=== PATIENT | female | born 1990 | race Caucasian/White ===

== ENCOUNTER 2019-08-08 09:54 | Outpatient (CLI) | payer OTHER ==
[~2019-08-08] VITALS: Ht 162.6 cm; Wt 78.0 kg
[2019-08-08 10:23] VITALS: BP 123/62
[2019-08-08] MEDS ORDERED: PREN1CHW6 PO ×2 (10:31)
[2019-08-08] MEDS ORDERED: IRON325T9 PO (10:31)
[2019-08-08] MEDS ORDERED: MAPA500T2 PO (10:31)
[2019-08-08 10:39] VITALS: BP 112/60
[2019-08-08 10:40] VITALS: BP 110/60
[2019-08-08 10:54] VITALS: BP 112/59
[2019-08-08] MEDS ORDERED: ACETAMINOPHEN 500 MG TAB PO ONE (11:00)
[2019-08-08 11:09] VITALS: BP 107/57
== END 2019-08-08 11:35 | disposition home or self-care (01) ==
LOC: M LDO 09:54
PROVIDERS: ATTEND Advanced Practice Midwife
DX: O16.3 Unspecified maternal hypertension, third trimester (principal); Z3A.40 40 weeks gestation of pregnancy; Z87.59 Personal history of other complications of pregnancy, childbirth and the puerperium
CPT/HCPCS: 59025; G0378; G0463

== ENCOUNTER 2019-08-09 04:02 | Outpatient (CLI) | payer OTHER ==
[~2019-08-09] VITALS: Ht 162.6 cm; Wt 77.6 kg
[~2019-08-09 04:02] MED LIST: IRON325T9 PO; MAPA500T2 PO; PREN1CHW6 PO
[2019-08-09 04:16] VITALS: BP 130/81
--- NOTE | 2019-08-09 05:03 | IPNPDOC ---
Text Note Date of Service The patient was seen on 08/09/19. NOTE patient is a 29 yo @ 40+2 presents to L&D with concern for having painful contractions. denies LOF/VB. +fm Vitals: normal NAD FHT: 125/mod cali/pos accel/no decel TOCO: irregular ctx ce: 2-3/50/-3, posterior, medium a/p patient @ 40+2wks, not in labor, return precautions given. f/u with clinic as scheduled, back to L&D as needed. DO ary VS,Maryam, I+O VS, Maryam, I+O Vital Signs Date Time Temp Pulse Resp B/P (MAP) Pulse Ox O2 Delivery O2 Flow Rate FiO2 08/09/19 04:16 97.4 76 18 130/81 (97) GLADYS YEE DO Aug 09, 2019 05:03
== END 2019-08-09 05:05 | disposition home or self-care (01) ==
LOC: M LDO 04:02
PROVIDERS: ATTEND Obstetrics & Gynecology
DX: O47.1 False labor at or after 37 completed weeks of gestation (principal); Z3A.40 40 weeks gestation of pregnancy
CPT/HCPCS: 59025; G0378; G0463

== ENCOUNTER 2019-08-10 05:22 | Inpatient (IN) | payer OTHER ==
[~2019-08-10] VITALS: Ht 162.6 cm; Wt 78.4 kg
[2019-08-10] VITALS (38 sets, daily range): BP systolic 105–173; BP diastolic 55–91
[2019-08-10] MEDS ORDERED: LACTATED RINGER'S 1000 ML IV STA (05:44)
[2019-08-10] MEDS ORDERED: PENICILLIN G POTASSIUM IV 5 MU in D5W MINI-BAG PLUS 100 ML IV STA (05:44)
[2019-08-10 06:24] LABS: HEMATOCRIT 34.4 % (36.0-47.0); HEMOGLOBIN 11.3 g/dl (12.0-15.5); MEAN CORPUSCULAR HEMOGLOBIN 29.7 pg (27.0-33.0); MEAN CORPUSCULAR HGB CONC 32.8 g/dl (32.0-36.5); MEAN CORPUSCULAR VOLUME 90.3 fl (80.0-96.0); PLATELET COUNT, AUTOMATED 212 10^3/uL (150-450); RED BLOOD COUNT 3.81 10^6/uL (4.00-5.40); WHITE BLOOD COUNT 12.3 10^3/uL (4.0-10.0)
--- NOTE | 2019-08-10 06:50 | HPEPDOC ---
Obstetrical History & Physical General Date of Admission Aug 10, 2019 at 05:45 Primary Care Physician: Donna Wood MD History of Present Illness 29y/o @ 40+3 wks by LMP c/w 9 wk US ([id number]) presents for contractions at term. She denies LOF, vaginal bleeding and endorses active movement. Contractions are getting increasingly painful and now associated with nausea. Chief Complaint: Contractions, term Information Provided By: Patient Age: 29 : 2 Term: 0 Pre-term: 1 Abortions: 0 Livin Care Care: Good Care Dating Final EDC: Aug 07, 2019 Final EDC for Daily Update: Aug 07, 2019 Final EDC by: LMP LMP: Oct 31, 2018 1st Trimester Date: Jan 03, 2019 Estimated Date of Confinement: Aug 07, 2019 Antepartum Course Diagnos(e)s -History of pre-term pre-eclampsia with severe features with delivery at 36 weeks, on ASA 81mg -Anemia -Migraines Height (inches): 64 Pre- weight (lbs.): 140 Admission Weight (lbs.): 172.5 Change in Weight (lbs.): 32 Past Medical History Past Obstetrical History : Past Obstetrical History: Multigravida Date of Delivery: Sep 23, 2017 Gestation: 36 Type of Delivery: Spontaneous Vaginal Del. 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 Denies asthma or HTN. Denies history of abnormal paps, procedures on the cervix or STIs to include HSV. Surgical History: Appendectomy, Tooth extraction, Other Family History Family History Reports history of colon and ovarian cancer Social History Marital Status: Family situation: Spouse/partner home Psychosocial History: No pertinent psych hx * Smoker: non-smoker Alcohol: Denies Drugs: denies Imunizations Tdap status: current Influenza Status: needs Allergies Coded Allergies: No Known Allergies (Unverified , 08/08/19) Medications Scheduled Ferrous Sulfate (Iron) 325 Mg Tablet, 1 TAB PO DAILY Vit37/Iron/Folic Acid (Prenata Chewable Tablet) 1 Each Tab.chew, 1 TAB PO DAILY Miscellaneous Medications Acetaminophen (Mapap) 500 Mg Tablet, 1,000 MG PO Physical Examination Physical Examination GENERAL: Alert and oriented times three. BREAST: . ABDOMEN: Gravid and non-tender to touch. FETUS: Is vertex (VTX) by sterile vaginal examination (SVE), fetus is vertex (VTX) by Ronaldo. HEART RATE: Regular rate and rhythm. LUNGS: Clear to auscultation (CTA). EXTREMITIES: No edema, erythema or calf tenderness. EFW 3700g Laboratory Data 24H LABS Laboratory Tests 2 08/10/19 05:52: Serology Scanned Report Hepatitis B Testing 08/10/19 06:11: Nucleated Red Blood Cells % (auto) 0.0 CBC/BMP Laboratory Tests 08/10/19 06:11 Red Blood Count 3.81 L, Mean Corpuscular Volume 90.3, Mean Corpuscular Hemoglobin 29.7, Mean Corpuscular Hemoglobin Concent 32.8, Red Cell Distribution Width 13.9 Pertinent Laboratoy Data Blood Type: A+ RBC Antibody Screen: Negative HIV: Negative Hepatitis B: Negative Hepatitis C: Unknown Rapid Plasma Reagin: Nonreactive Rubella: Immune Varicella: Immune Chlamydia/Gonorrhea: Negative Group B Streptococcus: Positive Quad Screen Test: Unknown Cystic Fibrosis: Negative Anatomy Ultrasound Ultrasound Date: March 21, 2019 Placenta Location: Posterior Normal Anatomy: Yes Placenta Previa: No Estimated Weight (grams): 386 Steroid Therapy Steroid Therapy: No Vaginal Examination Dilation: 5 cm Effacement: 70% Station: -1, 0 Cervical Consistency: Soft Cervical Position: Posterior Presentation: Cephalic presentation Position: Vertex (occiput) Assessment Variability: Moderate Accelerations: Positive Decelerations: None Tocometer Contractions: Yes Frequency: regular, every 3-7 min. Duration: greater than 60 seconds Strength: palpated as moderate Multi-drug resistant Organism: No history of MDRO Assessment/Plan Assessment Ms Restrepo is a 29-year-old (G)2 para (P)0101 at 40+3 weeks by LMP c/w 9-week ultrasound. 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 Diet: Clear liquid. Group B Streptococcus (GBS) positive. Will start PCN for prophylaxis. Labs and intravenous (IV) per unit protocol. Counseled on Pitocin and AROM for augmentation of labor (IOL). Lactated Ringers (LR): [id number] mL, then at 125 mL/hr. Epidural per patient desires Anticipate normal spontaneous delivery (). C-S as appropriate. Labor and Delivery Counseling Discussed with patient procedure to occur on labor and delivery to include exte rnal monitoring. Once water is broken, can also use internal monitors if needed for more information. Will start antibiotics for GBS positive, if signs of infection will add additional antibiotics. Risks of labor and delivery include infection, bleeding with possibility of blood transfusion with risks of transfusion reaction and blood borne infection, tearing of the vaginal tissue or need for episiotomy, which would be repaired with absorbable sutures should it occur. If baby is low in the pelvis and cervix is completely dilated, may need to assist delivery with Vacuum or Forceps. Other risks include injury to baby, need for emergency section, or need to do additional procedures as indicated. All questions answered to patient's apparent satisfaction. Donna Wood MD Aug 10, 2019 06:50
[2019-08-10] MEDS: LR 1,000 ML IV SCH ×3 (07:30→21:44)
--- NOTE | 2019-08-10 07:57 | IPNPDOC ---
Obstetrical Progress Note Date of Service Aug 10, 2019 Subjective Assumed care at [address] Wood of 29yo at 40+3wks admitted this AM in active labor. Pt's admission exam o/a 0600 5/75/-1 with BBOW; She has received her first dose of PCNG. Pt reports +FM, denies LOF/VB. Contractions still present and she desires to get up and walk around. She states she eventually desires an epidural. She has had some nausea and did have an episode of emesis after drinking broth. Objective O: VSS VE deferred at this time FHR 130s, moderate variability, + accels, no decels noted. CTX present, but irregular. Vital Signs Date Time Temp Pulse Resp B/P (MAP) Pulse Ox O2 Delivery O2 Flow Rate FiO2 08/10/19 07:22 98.0 81 18 128/79 (95) Assessment Heart Rate (FHR): 130 Variability: Moderate Accelerations: Positive Decelerations: None Heart Rate Tracing: Category I Tocometer Contractions: Yes Frequency: irregular Assessment and Plan Status: Reassuring Group B Streptococcus: Positive Anticipate: Vaginal Delivery Additional Comments A: Active labor, Category I FHT, s/p first dose of PCNG P: Pt can get up and walk if desired with Category I FHT Intermittent monitoring per protocol Epidural when pt is ready PO and IV hydration Zofran ordered for PRN if desired for nausea PCNG #2 at 1030 Will reassess labor after 2nd dose of PCNG or sooner PRN Anticipate Consult with OB if indicated MICK AMBROSIO CNM Aug 10, 2019 07:57
[2019-08-10] MEDS ORDERED: ONDANSETRON 4MG/2ML VIAL (J2405) IV PRN ×2 (08:00→11:15)
[2019-08-10] MEDS: PENICILLIN G POTASSIUM IV 2.5 MU in IV 1 EA IV SCH ×2 (10:49→14:49)
[2019-08-10] MEDS ORDERED: OXYTOCIN 30 UNITS IN 0.9% NaCl 500ML IV BAG (J2590) As Ordered ONE (10:51)
[2019-08-10] MEDS ORDERED: FENTANYL 2MCG/ML ROPIVACAINE 0.2% IN 0.9% NACL 100ML IVBAG As Ordered ONE (10:51)
[2019-08-10] MEDS ORDERED: OXYTOCIN DRIP 30 UNITS in IV 1 EA IV SCH ×2 (11:00→21:00)
[2019-08-10] MEDS ORDERED: ePHEDrine SULFATE 25 MG/5 ML(5MG/ML) SYRINGE IV PRN (11:15)
[2019-08-10] MEDS ORDERED: EPIDURAL COMMENT XX SCH (11:15)
[2019-08-10] MEDS ORDERED: LACTATED RINGER'S 1000 ML IV PRN (11:15)
[2019-08-10] MEDS ORDERED: REFRIGERATOR IV KEYS XX PRN (11:15)
[2019-08-10] MEDS ORDERED: EPIDURAL/PCA KEYS XX PRN (11:15)
[2019-08-10] MEDS ORDERED: NALOXONE INJ 0.4 MG/1 ML VIAL (J2310) IV PRN (11:15)
[2019-08-10] MEDS ORDERED: diphenhydrAMINE INJ 50MG/ML VIAL (J1200) IV PRN (11:15)
--- NOTE | 2019-08-10 11:16 | IPNPDOC ---
Obstetrical Progress Note Date of Service Aug 10, 2019 Subjective 29yo at 40+3wks, tolerating contractions, but report she feels they are spacing out. Pt now desires epidural. Objective O: VSS FHR 125, moderate variability, + accels, no decels CTX q 5-7 minutes apart VE at 1045: 5.5/75/-1, posterior Vital Signs Date Time Temp Pulse Resp B/P (MAP) Pulse Ox O2 Delivery O2 Flow Rate FiO2 08/10/19 08:32 71 18 127/80 (96) 08/10/19 07:22 98.0 Assessment Heart Rate Tracing: Category I Tocometer Contractions: Yes Frequency: irregular Assessment and Plan Status: Reassuring Group B Streptococcus: Positive Anticipate: Vaginal Delivery Additional Comments A: Active labor, but no progress; category I FHT; pending 2nd dose of PCNG P: CEFM x2 Epidural now Start pitocin per low dose protocol Reassess in 4 hours or sooner PRN Anticipate Consult with OB as indicated MICK AMBROSIO CNM Aug 10, 2019 11:16
[2019-08-10] MEDS: FENTANYL/ROPIVACAINE/NACL BAG 100 ML EPIDURAL SCH ×2 (11:31→19:21)
--- NOTE | 2019-08-10 15:27 | IPNPDOC ---
Obstetrical Progress Note Date of Service Aug 10, 2019 Subjective 29yo at 40+3wks, now s/p epidural and comfortable. Pt is without concerns at this time. Pt consents for labor progress cervical exam. Objective O: VSS FHR 130s, moderate variability, + accels, no decels present CTX: q 3-4 minutes apart; pitocin running at 14mu/min VE: 6/80/-2; cervix more mid position, BBOW, head ballottable, most likely d/t maternal position Vital Signs Date Time Temp Pulse Resp B/P (MAP) Pulse Ox O2 Delivery O2 Flow Rate FiO2 08/10/19 15:15 98.6 71 18 128/77 (94) Assessment Heart Rate Tracing: Category I Assessment and Plan Status: Reassuring Group B Streptococcus: Positive Anticipate: Vaginal Delivery Additional Comments A: Active labor on pitocin, currently at 14mu/min; category I FHT P: CEFM x2 Continue pitocin per low dose protocol Reassess in 2-4 hours or sooner PRN Consider AROM during next exam Anticipate Consult with OB as indicated MICK AMBROSIO CNM Aug 10, 2019 15:27
--- NOTE | 2019-08-10 17:20 | IPNPDOC ---
Obstetrical Progress Note Date of Service Aug 10, 2019 Subjective 29yo at 40+3wks now c/o increased sharp pain and pressure. Pt consents to labor progress cervical exam. Objective O: VSS FHR 125, moderate variability, + accels, intermittent late decelerations CTX regular, pitocin at 18mu/min VE: C/C/0 AROMd during this exam, moderate meconium present Vital Signs Date Time Temp Pulse Resp B/P (MAP) Pulse Ox O2 Delivery O2 Flow Rate FiO2 08/10/19 16:15 65 18 122/68 (86) 08/10/19 15:15 98.6 Assessment and Plan Status: Reassuring Group B Streptococcus: Positive Anticipate: Vaginal Delivery Additional Comments A: Active labor, second stage, meconium stained amniotic fluid, Category II FHT with moderate variability and accels present P: Request epidural bolus Reduce pitocin to 10mu/min labor down 1/2-1 hour, then start pushing Will contact peds d/t meconium Anticipate Consult with OB if indicated MIKC AMBROSIO CNM Aug 10, 2019 17:20
[2019-08-10] MEDS ORDERED: fentaNYL 100 MCG/2 ML INJECTION (J3010) As Ordered ONE (19:16)
[2019-08-10] MEDS ORDERED: ACETAMINOPHEN 500 MG TAB PO PRN (20:45)
[2019-08-10] MEDS ORDERED: ACETAMINOPHEN TAB 650MG DOSE (2X325MG) PO PRN (20:45)
[2019-08-10] MEDS ORDERED: IBUPROFEN 600 MG TAB PO PRN (20:45)
[2019-08-10] MEDS: DOCUSATE SODIUM 100 MG CAP PO SCH (21:00)
--- NOTE | 2019-08-10 21:02 | DNPDOC ---
[facility] Delivery Note Delivery Note DATE OF DELIVERY: August 10, 2019 at 20:02 PREDELIVERY DIAGNOSIS: 40+3 weeks gestation; labor POST DELIVERY DIAGNOSIS: with shoulder dystocia PROCEDURE: Spontaneous Vaginal Delivery with Shoulder Dystocia PIPELINE SUPERINTENDENT DIVISION: NANDO Ambrosio ANESTHESIA: Epidural ESTIMATED BLOOD LOSS: 400mL FINDINGS: Male , 8lbs 14oz, 4030g; 7/8 DELIVERY SUMMARY: 29yo at 40+3wks, C/C/0 at 1653. Pt was allowed to labor down, was effectively pushing, but had slow progress. Once was at +3 station, pushing efforts became strong and effective. head delivered at 2000, VAUGHN and restituted to ROT; the no futher descent occurred. Pt was initially repositioned to supine between contractions. Once the next contraction started, head did not descend with strong maternal effort. Should dystocia was called, back up requested, and maneuvers were initiated with Zheng. Once back was identified (maternal right), I called for suprapubic pressure towards maternal left, of which released left anterior shoulder, then immediate delivery of remainder of body to maternal abdomen. Total time of shoulder dystocia was approximately 40 seconds. Cord clamped x2 and cut by myself and infant take to warmer for assessment (infant crying with good tone and returned to mother within 2 minutes). Placenta delivered spontaneously and appeared intact, 3VC; fundus firm and EBL 400mL. Upon inspection of perineum, vagina and cervix, a 2nd degree perineal laceration noted and repaired in usual fashion with 3-0 chromic; small periclitoral abrasion noted, but no repair required; good hemostasis achieved. Patient and family bonding well; anticipate uncomplicated course. MICK AMBROSIO CNM Aug 10, 2019 21:02
[2019-08-10] MEDS: IBUPROFEN 800 MG TAB PO PRN (22:46)
[2019-08-11] MEDS: LR 1,000 ML IV SCH ×2 (05:44→13:44)
[2019-08-11 06:11] VITALS: BP 122/67
[2019-08-11] MEDS ORDERED: INFLUENZA QUADRIVALENT PF VACCINE 0.5ML SYRINGE (90686) IM ONE (09:00)
--- NOTE | 2019-08-11 09:26 | IPN ---
DATE: 08/11/2019 This patient has requested circumcision of their male infant. After discussing risks, benefits of circumcision medical and nonmedical indications of penile block and aftercare expressed understanding of penile block and aftercare, signed the consent form. All questions were answered. 20-minute discussion.
--- NOTE | 2019-08-11 09:27 | IPN ---
DATE: 08/11/2019 day 1. This lady is a 29-year-old 2 now para 2 admitted in active labor at 40 and 3 weeks of gestation. had a spontaneous vaginal delivery of the head with mild shoulder dystocia, live male weighing 8 pounds 14 ounces, 4030 grams, scores of seven and eight at 1 and 5 minutes respectively. She sustained a second-degree tear which was repaired. The uterus contracted well under Pitocin. No other untoward events. On her first day we discussed phlebitis, cystitis, mastitis, endometritis and cellulitis, diet, exercise pain management, perineal breast and wound care. control is uncertain at the present time. This morning, her vital signs blood pressure 122/67, respirations 18, pulse 69, temperature 99.3. Her admitting hemoglobin was 11.3, hematocrit 34.4, platelets are 212. The rest examination unremarkable. She is normocephalic, atraumatic. Neck full range of motion. Pupils equal and reactive to light. Distal pulses are symmetric. No evidence of DVT, PE or superficial phlebitis. Chest is clear bilaterally to the bases. No wheezes or rhonchi. No CVA tenderness. Abdomen soft. Uterus 2 below. Lochia is moderate. Four quadrant bowel sounds are noted. Perineum is healing intact. No rashes, lesions or pruritus. No arthralgia, myalgia. No complaint joint pain. No complaint cough, wheeze, shortness of breath or dyspnea on exertion. She presently had a void, is passing gas, doing well mobilizing and is going well. In summary we have a term gestation delivered a live male infant with mild shoulder dystocia. Plans are for discharge tomorrow morning. Baby will be circumcised today. All questions were answered.
[2019-08-11] MEDS: PRENATAL VITAMINS CHEWABLE TABLET PO SCH (09:33)
[2019-08-11] MEDS: DOCUSATE SODIUM 100 MG CAP PO SCH ×2 (09:33→20:37)
[2019-08-11] MEDS: IBUPROFEN 800 MG TAB PO PRN ×2 (09:33→19:24)
[2019-08-11 17:56] VITALS: BP 124/59
--- NOTE | 2019-08-12 05:38 | IPNPDOC ---
Text Note Date of Service The patient was seen on 08/12/19. NOTE patient is a 29 yo s/p ppd #2. She has no concerns today. she is ambulating, urinating, tolerating po without problem. plans for spouse vasectomy for contraceptive. patient states baby getting circumcision today. vitals: normal NAD abd: le: no edema a/p ppd# 2, doing well. meds to be placed in pharmacy. discharge planning. d/c today. DO Reema VS,Maryam, I+O VS, Justobone, I+O Vital Signs Date Time Temp Pulse Resp B/P (MAP) Pulse Ox O2 Delivery O2 Flow Rate FiO2 08/11/19 17:56 97.7 66 20 124/59 (80) 08/10/19 22:49 99 GLADYS YEE DO Aug 12, 2019 05:38
--- NOTE | 2019-08-12 05:45 | OBDS ---
[facility] Obstetrical Discharge Sum. Obstetrical Discharge Summary Visiting Housekeeper/Provider: GLADYS YEE DO Date: Aug 12, 2019 : 2 Term: 1 Pre-term: 1 Abortions: 0 Livin VDRL: Non-Reactive Rh: Positive Rubella: Immune Sex: Male Weight: pounds (8), ounces (14), grams (4030) A/P, Post Course List any complications Admission diagnosis: Labor Discharge diagnosis: Condition at Discharge: stable Discharge Instructions: home Activity: at [facility] Diet: regular Medications: filled at [facility] Follow-up: 6-8 weeks Patient admitted in labor. She progressed to have spontaneous vaginal delivery. Delivery complicated with shoulder dystocia, resolved without injury. Patient had second degree midline laceration, repaired. course uncomplicated and she was discharged home on day #2. GLADYS YEE DO Aug 12, 2019 05:45
[2019-08-12 06:00] VITALS: BP 129/72
[2019-08-12] MEDS: DOCUSATE SODIUM 100 MG CAP PO SCH (08:10)
[2019-08-12] MEDS: PRENATAL VITAMINS CHEWABLE TABLET PO SCH (08:10)
[2019-08-12] MEDS: IBUPROFEN 800 MG TAB PO PRN (08:11)
== END 2019-08-12 13:00 | disposition home or self-care (01) | DRG 807 ==
LOC: M LDO 05:22 → M LDI 05:45 → M OBS 22:41
PROVIDERS: ADMIT Obstetrics & Gynecology; ATTEND Registered Nurse Maternal Newborn
PROC: 10E0XZZ Delivery of Products of Conception, External Approach (ICD-10-PCS; principal; 2019-08-10)
PROC: 0KQM0ZZ Repair Perineum Muscle, Open Approach (ICD-10-PCS; 2019-08-10)
PROC: 10907ZC Drainage of Amniotic Fluid, Therapeutic from Products of Conception, Via Natural or Artificial Opening (ICD-10-PCS; 2019-08-10)
DX: O48.0 Post-term pregnancy (principal); Z37.0 Single live birth; O99.02 Anemia complicating childbirth; D64.9 Anemia, unspecified; Z3A.40 40 weeks gestation of pregnancy; O99.824 Streptococcus B carrier state complicating childbirth; O77.1 Fetal stress in labor or delivery due to drug administration; O66.0 Obstructed labor due to shoulder dystocia; O70.1 Second degree perineal laceration during delivery

== ENCOUNTER 2019-08-21 11:50 | Inpatient (IN) | payer OTHER ==
[~2019-08-21] VITALS: Ht 162.6 cm; Wt 66.1 kg
[2019-08-21] MEDS ORDERED: NS IV ONE (12:30)
--- NOTE | 2019-08-21 13:05 | REP ---
Chest x-ray: Two views. History: Fever and cough . Comparison study: No comparison study . Findings: The lungs are well inflated and free of infiltrate. The pleural angles are sharp. The heart size is normal. Pulmonary vasculature is not increased. No significant bony abnormality is seen. Impression: Negative chest x-ray. Electronically Signed by Nicola Perrin MD 08/21/2019 12:56 P
[2019-08-21 13:14] LABS: BASO % 0.2 % (0.0-1.0); EOS # 0.2 10^3/uL (0.0-0.5); EOS % 1.3 % (0.0-3.0); HEMATOCRIT 34.2 % (36.0-47.0); HEMOGLOBIN 11.4 g/dl (12.0-15.5); LYMPH # 0.8 10^3/uL (1.5-5.0); LYMPH % 6.3 % (24.0-44.0); MEAN CORPUSCULAR HEMOGLOBIN 29.5 pg (27.0-33.0); MEAN CORPUSCULAR HGB CONC 33.3 g/dl (32.0-36.5); MEAN CORPUSCULAR VOLUME 88.6 fl (80.0-96.0); MONO # 0.2 10^3/uL (0.0-0.8); MONO % 1.7 % (0.0-5.0); NEUTROPHILS # 11.7 10^3/uL (1.5-8.5); PLATELET COUNT, AUTOMATED 309 10^3/uL (150-450); RED BLOOD COUNT 3.86 10^6/uL (4.00-5.40)
[2019-08-21 13:50] LABS: ALBUMIN 3.1 GM/DL (3.2-5.2); ALT/SGPT 25 U/L (12-78); AMYLASE 35 U/L (25-115); BILIRUBIN,DIRECT 0.1 MG/DL (0.0-0.2); BILIRUBIN,TOTAL 0.7 MG/DL (0.2-1.0); BLOOD UREA NITROGEN 7 MG/DL (7-18); CALCIUM LEVEL 8.4 MG/DL (8.5-10.1); CARBON DIOXIDE LEVEL 25 MEQ/L (21-32); CHLORIDE LEVEL 102 MEQ/L (98-107); CREATININE FOR GFR 0.68 MG/DL (0.55-1.30); GLOMERULAR FILTRATION RATE > 60.0 (>60); GLUCOSE, FASTING 125 MG/DL (70-100); POTASSIUM SERUM 3.3 MEQ/L (3.5-5.1); SODIUM LEVEL 134 MEQ/L (136-145); TOTAL PROTEIN 7.2 GM/DL (6.4-8.2)
[2019-08-21] MEDS ORDERED: IBUPROFEN 800 MG TAB PO ONE (14:00)
[2019-08-21] MEDS ORDERED: cefTRIAXone SOD 1 GM in D5W MINI-BAG PLUS 50 ML IV ONE (14:00)
--- NOTE | 2019-08-21 16:25 | HPEPDOC ---
[facility] Medical History & Physical Date of Admission Aug 21, 2019 Date of Service: Aug 21, 2019 History and Physical CHIEF COMPLAINT: Fevers chills HISTORY OF PRESENT ILLNESS: This is a 29-year-old female who is day 11 after a fairly spontaneous vaginal delivery. She had a fairly regular course this is her second vaginal delivery the actual delivery was, complicated by shoulder dystocia via which was corrected without serious complication. Patient did suffer a midline tear which he tells me is been healing well and not causing her pain. 2-3 days ago she began having headache leg cramps and slight pain with urination. She tells me that she has occasional squeezing suprapubic pain her lightheadedness and weakness worsened and her sweats increase over the last 24 hours prompting her to present to the emergency room today. She tells me she has had urinary tract infections in the past but they have not felt like this. She tells me that this . Does not feel similar to her last period. Otherwise patient denies hair loss, visual changes, chest pain, shortness of breath, cough, nausea, vomiting, diarrhea, worsening arthritis, change in mood PAST MEDICAL HISTORY: 1 migraines. HOME MEDICATIONS: Please see below. ALLERGIES: Please see below PAST SURGICAL HISTORY: 1. Appendectomy. 2 leg surgery. 3 tooth extraction. SOCIAL HISTORY: Lives with: and 2 children, Employment: Not currently working, Tobacco use: Denies. ETOH: Denies, Illicit drug use: Denies, CODE STATUS: Full code FAMILY HISTORY:Reviewed and noncontributory REVIEW OF SYSTEMS: 10 systems reviewed and negative other than HPI PHYSICAL EXAMINATION: VITAL SIGNS: Temperature 101.7, pulse 125, respiratory rate 18, blood pressure 123/75, pulse oximetry 100 % on room air. GENERAL: Pleasant diaphoretic tired appearing female sitting up in bed awake alert oriented speaking in complete sentences no acute distress accompanied by her and son HEENT: Dry mucous membranes no elevation in CVP CARDIOVASCULAR: S1 S2 tachycardic no additional heart sounds appreciated. RESPIRATORY: Clear to auscultation bilaterally. ABDOMINAL: Bowel sounds present abdomen soft and tender over the suprapubic region EXTREMITIES: No clubbing cyanosis or edema NEUROLOGICAL: Spontaneously moves all 4 extremities cranial 2 through 12 grossly intact no gross focal deficits appreciated PSYCHOLOGICAL: Appropriate LABORATORY DATA: See below. MICROBIOLOGY: Please see below. IMAGING: Chest x-ray: Negative chest x-ray ASSESSMENT & PLAN: This is a 29-year-old female day 11 presenting with fever. PROBLEMS: 1 fever: Urinalysis is certainly abnormal she has some complaints of dysuria. She has begun empiric treatment for urinary tract infection with ceftriaxone no previous culture data to guide therapy. Blood cultures were drawn urine culture has been drawn. The ER provider did examine her midline tear without any concerns for infection patient herself complains of suprapubic pain which I would expect the period and not necessarily cystitis. I will check a CT abdomen and pelvis to rule out any uterine pathology should she fail to improve over the next 24 hours and have positive findings that would consider inpatient OB consultation she follows with the [facility]. I'll provide her with normal saline at 100 mL per hour. Tylenol when necessary for fever 2 cramps: She did complain of leg cramps bilaterally her potassium was somewhat low I will replete this and will also add on magnesium and phosphorus levels. 3 : Continue with vitamins. 4 iron deficiency anemia: Not significantly deficient at this time continue with her home supplementation. DVT PROPHYLAXIS:Encourage ambulation compression stockings DISPOSITION: Admitted to inpatient status [facility] floor This note was generated in part or whole with a voice recognition software. Voice recognition is usually quite accurate but often erros do occur. I apologize for any typographical errors that were not detected and corrected. Vital Signs Vital Signs Date Time Temp Pulse Resp B/P (MAP) Pulse Ox O2 Delivery O2 Flow Rate FiO2 08/21/19 13:59 100.3 99 20 122/70 (87) 98 08/21/19 11:52 Room Air Laboratory Data Labs 24H Laboratory Tests 2 08/21/19 13:00: Urine Color YELLOW, Urine Appearance CLEAR, Urine pH 6.0, Urine Specific [place] 1.005, Urine Protein NEGATIVE, Urine Glucose (UA) NEGATIVE, Urine Ketones 1+H, Urine Blood 2+H, Urine Nitrite NEGATIVE, Urine Bilirubin NEGATIVE, Urine Urobilinogen 0.2, Urine Leukocyte Esterase 3+H, Urine WBC (Auto) 21H, Urine RBC (Auto) 2, Urine Hyaline Casts (Auto) 0, Urine Bacteria (Auto) 1+H, Urine Squam ous Epithelial Cells 1, Urine Mucus (Auto) SMALL, Urine Sperm (Auto) , Lactic Acid Level 1.4 08/21/19 13:01: Immature Granulocyte % (Auto) 0.5, Neutrophils (%) (Auto) 90.0H, Lymphocytes (%) (Auto) 6.3L, Monocytes (%) (Auto) 1.7, Eosinophils (%) (Auto) 1.3, Basophils (%) (Auto) 0.2, Neutrophils # (Auto) 11.7H, Lymphocytes # (Auto) 0.8L, Monocytes # (Auto) 0.2, Eosinophils # (Auto) 0.2, Basophils # (Auto) 0.0, Nucleated Red Blood Cells % (auto) 0.0, Anion Gap 7L, Glomerular Filtration Rate > 60.0, Calcium Level 8.4L, Total Bilirubin 0.7, Direct Bilirubin 0.1, Aspartate Amino Transf (AST/SGOT) 19, Alanine Aminotransferase (ALT/SGPT) 25, Alkaline Phosphatase 124H, C-Reactive Protein, Quantitative 25.40H, Total Protein 7.2, Albumin 3.1L, Albumin/Globulin Ratio 0.76L, Amylase Level 35 CBC/BMP Laboratory Tests 08/21/19 13:01 Microbiology Microbiology 08/21/19 Blood Culture, Received Pending 08/21/19 Blood Culture, Received Pending 08/21/19 Urine Culture, Received Pending Home Medications Scheduled Ferrous Sulfate (Iron) 325 Mg Tablet, 325 MG PO DAILY Vit37/Iron/Folic Acid (Prenata Chewable Tablet) 1 Each Tab.chew, 1 TAB PO DAILY Scheduled PRN Acetaminophen (Mapap) 500 Mg Tablet, 1,000 MG PO Q6H PRN for PAIN Allergies Coded Allergies: No Known Allergies (Unverified , 08/08/19) A-FIB/CHADSVASC A-FIB History Current/History of A-Fib/PAF?: No MELBA ZEPEDA MD Aug 21, 2019 16:25
[2019-08-21] MEDS ORDERED: POTASSIUM CHLORIDE 10 MEQ SR TABLET PO ONE (17:00)
--- NOTE | 2019-08-21 17:17 | REP ---
CT abdomen and pelvis without IV or oral contrast: History: fever. Pelvic pain. CT findings: Preliminary digital customer program specialist radiograph demonstrates an unremarkable bowel gas pattern. The lung bases are clear on axial CT images. The liver and the spleen are normal in size homogeneous in texture. No adrenal abnormality is observed. There is no abnormality in the pancreas or gallbladder. Kidneys are morphologically intact. There are surgical sutures adjacent to the cecum post appendectomy. Small and large bowel loops are normal in the abdomen and pelvis. There is expected enlargement of the uterus. Uterus measures 12.4 cm in length by 7.8 cm anteroposterior by 10.6 cm medial to lateral. No free fluid is seen in the cul-de-sac. Urinary bladder is unremarkable. No mass or adenopathy is seen. There is no evidence of free intraperitoneal air. Impression: uterine enlargement. Otherwise unremarkable CT study abdomen and pelvis. Surgical sutures adjacent to the cecum post appendectomy. Electronically Signed by Nicola Perrin MD 08/21/2019 05:09 P
[2019-08-21 18:00] VITALS: BP 117/59
[2019-08-21] MEDS: NS 1,000 ML IV SCH (18:19)
[2019-08-21 20:15] VITALS: BP 101/56
[2019-08-21 21:12] LABS: MAGNESIUM LEVEL 1.9 MG/DL (1.8-2.4); PHOSPHORUS LEVEL 3.5 MG/DL (2.5-4.9)
[2019-08-22 00:25] VITALS: BP 117/65
[2019-08-22] MEDS: ACETAMINOPHEN 500 MG TAB PO PRN ×2 (00:29→16:41)
[2019-08-22] MEDS: NS 1,000 ML IV SCH ×3 (02:17→23:09)
[2019-08-22 04:30] VITALS: BP 106/55
[2019-08-22 06:58] LABS: HEMATOCRIT 29.8 % (36.0-47.0); HEMOGLOBIN 9.8 g/dl (12.0-15.5); MEAN CORPUSCULAR HEMOGLOBIN 30.2 pg (27.0-33.0); MEAN CORPUSCULAR HGB CONC 32.9 g/dl (32.0-36.5); MEAN CORPUSCULAR VOLUME 91.7 fl (80.0-96.0); PLATELET COUNT, AUTOMATED 237 10^3/uL (150-450); RED BLOOD COUNT 3.25 10^6/uL (4.00-5.40); WHITE BLOOD COUNT 7.1 10^3/uL (4.0-10.0)
[2019-08-22 07:21] LABS: BLOOD UREA NITROGEN 7 MG/DL (7-18); CALCIUM LEVEL 8.6 MG/DL (8.5-10.1); CARBON DIOXIDE LEVEL 23 MEQ/L (21-32); CHLORIDE LEVEL 113 MEQ/L (98-107); GLOMERULAR FILTRATION RATE > 60.0 (>60); GLUCOSE, FASTING 86 MG/DL (70-100); POTASSIUM SERUM 3.8 MEQ/L (3.5-5.1); SODIUM LEVEL 142 MEQ/L (136-145)
[2019-08-22] MEDS: PRENATAL VITAMINS CHEWABLE TABLET PO SCH (09:10)
[2019-08-22] MEDS: FERROUS SULFATE 325MG TAB PO SCH (09:11)
[2019-08-22 09:15] VITALS: BP 113/62
--- NOTE | 2019-08-22 13:54 | IPNPDOC ---
Date Seen The patient was seen on 08/22/19. Progress Note SUBJECTIVE: Patient reports she is feeling better this morning. No urinary symptoms, but she did spike a fever of 101 overnight. She does report some chills. Otherwise, no major issues reported overnight. OBJECTIVE PHYSICAL EXAMINATION: VITAL SIGNS: Please see below. GENERAL: Laying in bed, calm, cooperative, appears stated age, in no acute distress HEENT: Moist mucus membranes, EOMI, PERRLA, neck is supple without lymphadenopathy or thyromegaly CARDIOVASCULAR: RRR, no murmurs/rubs/gallops, normal S1 and S2 RESPIRATORY: clear to auscultation bilaterally without any adventitious breath sounds appreciated ABDOMINAL: Soft, nontender to palpation, +BS, no masses or organomegaly EXTREMITIES: no clubbing/cyanosis/edema NEUROLOGICAL: CN 2-12 intact without any focal deficits appreciated PSYCHOLOGICAL: AAOx3, normal mood/affect LABORATORY DATA, IMAGING STUDIES, MICROBIOLOGY: Please see below. DVT prophylaxis ordered?: none needed ASSESSMENT AND PLAN: This is a 29 YO F 12 days who presented with fever found to have possible UTI on antibiotics PROBLEMS: 1. Fever possibly 2/2 UTI: patient never really had urinary symptoms, just some lower abdominal pain which may be from her recent delivery. -She did have fever of 101 overnight despite having gotten one dose of Ceft riaxone yesterday. -Plan for another dose of Ceftriaxone today and will monitor fever curve. -Continue IVF -PRN Acetaminophen for fever 2. state: -Continue vitamins 3. Cramps 2/2 hypokalemia: Patient is not having any more cramps today -K today is 3.8. Appears it has resolved 4. Iron deficiency anemia: -Continue oral supplementation DISPOSITION: pending improvement and 24hours afebrile. Anticipate discharge within 24-48hours VS, I&O, 24H, Fishbone Vital Signs/I&O Vital Signs Date Time Temp Pulse Resp B/P (MAP) Pulse Ox O2 Delivery O2 Flow Rate FiO2 08/22/19 09:15 18 08/22/19 09:15 97.6 71 113/62 (79) 97 Room Air I&O- Last 24 Hours up to 6 AM 08/22/19 06:00 Intake Total 3700 ml Output Total 1060 ml Balance 2640 ml Laboratory Data 24H LABS Laboratory Tests 2 08/22/19 06:14: Nucleated Red Blood Cells % (auto) 0.0, Anion Gap 6L, Glomerular Filtration Rate > 60.0, Calcium Level 8.6 CBC/BMP Laboratory Tests 08/22/19 06:14 Microbiology Microbiology 08/21/19 Blood Culture - Preliminary, Resulted No growth after 24 hours . All specim... 08/21/19 Blood Culture - Preliminary, Resulted No growth after 24 hours . All specim... 08/21/19 Urine Culture - Final, Complete GME ATTESTATION GME ATTESTATION My faculty preceptor for this patient encounter was physically present during the encounter and was fully available. All aspects of the patient interview, examination, medical decision making process, and medical care plan development were reviewed and approved by the faculty preceptor. The faculty preceptor is aware and concurs with the plan as stated in the body of this note and will attest to such by his/her cosignature. REBECCA STOCKTON MD Aug 22, 2019 13:54
[2019-08-22] MEDS ORDERED: cefTRIAXone SOD 1 GM in D5W MINI-BAG PLUS 50 ML IV SCH (14:00)
[2019-08-22 16:40] VITALS: BP 115/70
[2019-08-23] VITALS: BP 123/75
[2019-08-23 06:48] LABS: HEMOGLOBIN 9.3 g/dl (12.0-15.5); MEAN CORPUSCULAR HEMOGLOBIN 29.8 pg (27.0-33.0); MEAN CORPUSCULAR HGB CONC 32.1 g/dl (32.0-36.5); MEAN CORPUSCULAR VOLUME 92.9 fl (80.0-96.0); PLATELET COUNT, AUTOMATED 231 10^3/uL (150-450); RED BLOOD COUNT 3.12 10^6/uL (4.00-5.40); WHITE BLOOD COUNT 5.9 10^3/uL (4.0-10.0)
[2019-08-23 07:15] LABS: BLOOD UREA NITROGEN 5 MG/DL (7-18); CARBON DIOXIDE LEVEL 25 MEQ/L (21-32); CHLORIDE LEVEL 109 MEQ/L (98-107); CREATININE FOR GFR 0.51 MG/DL (0.55-1.30); GLOMERULAR FILTRATION RATE > 60.0 (>60); GLUCOSE, FASTING 88 MG/DL (70-100); POTASSIUM SERUM 3.6 MEQ/L (3.5-5.1); SODIUM LEVEL 141 MEQ/L (136-145)
[2019-08-23] MEDS: NS 1,000 ML IV SCH (07:28)
[2019-08-23 08:00] VITALS: BP 136/83
[2019-08-23] MEDS: PRENATAL VITAMINS CHEWABLE TABLET PO SCH (08:43)
[2019-08-23] MEDS: FERROUS SULFATE 325MG TAB PO SCH (08:43)
[2019-08-23] MEDS ORDERED: CEFD1CAP8 PO ×2 (10:16→11:47)
--- NOTE | 2019-08-23 13:32 | DS.PDOC ---
Discharge Summary General Date of Admission Aug 21, 2019 at 16:12 Date of Discharge August 23, 2019 Attending Physician: CORI LAUREANO MD Discharge Summary PROCEDURES PERFORMED DURING STAY: [None]. ADMITTING DIAGNOSES: 1. Fever 2. Possible infected perineal laceration 3. Leg cramps secondary to hypo-magnesium and hypokalemia 4. Iron deficiency anemia DISCHARGE DIAGNOSES: 1. UTI COMPLICATIONS/CHIEF COMPLAINT: UTI. HISTORY OF PRESENT ILLNESS: This is a 29-year-old female who is day 11 after a fairly spontaneous vaginal delivery. She had a fairly regular course this is her second vaginal delivery the actual delivery was, complicated by shoulder dystocia via which was corrected without serious complication. Patient did suffer a midline tear which he tells me is been healing well and not causing her pain. 2-3 days ago she began having headache leg cramps and slight pain with urination. She tells me that she has occasional squeezing suprapubic pain her lightheadedness and weakness worsened and her sweats increase over the last 24 hours prompting her to present to the emergency room today. She tells me she has had urinary tract infections in the past but they have not felt like this. She tells me that this . Does not feel similar to her last period. Otherwise patient denies hair loss, visual changes, chest pain, shortness of breath, cough, nausea, vomiting, diarrhea, worsening arthritis, change in mood HOSPITAL COURSE: On admission, patient was found to have low-grade fever of 100.3 and complained of dysuria. A urinalysis was done and found 3+ leukocyte esterase and 1+ bacteria. She also complained of leg cramps and potassium was found to be low at 3.3 and magnesium at 1.9. These were replaced. The patient was also put on vitamins. For her UTI, she was treated empirically with intravenous Rocephin. On the night of hospital day 1, she did spike a fever of 101. On hospital day 3, the patient reported resolution of her symptoms. She was discharged home on oral Cefdinir for 10 days. DISCHARGE MEDICATIONS: Please see below. ALLERGIES: Please see below. PHYSICAL EXAMINATION: VITAL SIGNS: Please see below. GENERAL: Laying in bed, calm, cooperative, appears stated age, in no acute distress HEENT: Moist mucus membranes, EOMI, PERRLA, neck is supple without lymphadenopathy or thyromegaly CARDIOVASCULAR: RRR, no murmurs/rubs/gallops, normal S1 and S2 RESPIRATORY: clear to auscultation bilaterally without any adventitious breath sounds appreciated ABDOMINAL: Soft, nontender to palpation, +BS, no masses or organomegaly EXTREMITIES: no clubbing/cyanosis/edema NEUROLOGICAL: CN 2-12 intact without any focal deficits appreciated PSYCHOLOGICAL: AAOx3, normal mood/affect LABORATORY DATA: Please see below. IMAGING: CXR (08/21/19): The lungs are well inflated and free of infiltrate. The pleural angles are sharp. The heart size is normal. Pulmonary vasculature is not increased. No significant bony abnormality is seen. CT Abd/Pelvis (08/21/19): uterine enlargement. Otherwise unrem arkable CT study abdomen and pelvis. Surgical sutures adjacent to the cecum post appendectomy. PROGNOSIS: fair ACTIVITY: [As tolerated]. DIET: as tolerated DISCHARGE PLAN: Home DISPOSITION: . DISCHARGE INSTRUCTIONS: 1. Please complete oral antibiotics for total of 10 days. 2. Please follow-up with your primary care physician or OB as needed. 3. Please return to the ER if you experience any problems ITEMS TO FOLLOWUP ON ON OUTPATIENT: 1. None DISCHARGE CONDITION: [Stable]. TIME SPENT ON DISCHARGE: 32 minutes. Vital Signs/I&Os Vital Signs Date Time Temp Pulse Resp B/P (MAP) Pulse Ox O2 Delivery O2 Flow Rate FiO2 08/23/19 08:00 98.1 56 18 136/83 (100) 97 Room Air I&O- Last 24 Hours up to 6 AM 08/23/19 06:00 Intake Total 3310 ml Output Total 1535 ml Balance 1775 ml Laboratory Data Labs 24H Laboratory Tests 2 08/23/19 06:21: Nucleated Red Blood Cells % (auto) 0.0 08/23/19 06:22: Anion Gap 7L, Glomerular Filtration Rate > 60.0, Calcium Level 9.0 CBC/BMP Laboratory Tests 08/23/19 06:21 08/23/19 06:22 Microbiology Microbiology 08/21/19 Blood Culture - Preliminary, Resulted No Growth after 48 hours. All Specime... 08/21/19 Blood Culture - Preliminary, Resulted No Growth after 48 hours. All Specime... 08/21/19 Urine Culture - Final, Complete Discharge Medications Scheduled Cefdinir (Cefdinir) 300 Mg Capsule, 300 MG PO BID Ferrous Sulfate (Iron) 325 Mg Tablet, 325 MG PO DAILY, (Reported) Vit37/Iron/Folic Acid (P[place]ata Chewable Tablet) 1 Each Tab.chew, 1 TAB PO DAILY, (Reported) Scheduled PRN Acetaminophen (Mapap) 500 Mg Tablet, 1,000 MG PO Q6H PRN for PAIN, (Reported) Allergies Coded Allergies: No Known Allergies (Unverified , 08/08/19) GME ATTESTATION GME ATTESTATION My faculty preceptor for this patient encounter was physically present during the encounter and was fully available. All aspects of the patient interview, examination, medical decision making process, and medical care plan development were reviewed and approved by the faculty preceptor. The faculty preceptor is aware and concurs with the plan as stated in the body of this note and will attest to such by his/her cosignature. ATTENDING NOTE I, Cori Laureano, have independently examined this patient and performed my own physical exam, as well as reviewed the documentation and edited where necessary. I have discussed in detail with the resident / student the findings and plan of treatment as documented by the resident / student and edited their note. I agree with their findings and treatment plan and have edited their documentation. I will continue to follow the patient during this hospital stay. Time spend on discharge 35 minutes REBECCA STOCKTON MD Aug 23, 2019 13:32 CORI LAUREANO MD Aug 23, 2019 14:57
== END 2019-08-23 12:00 | disposition home or self-care (01) | DRG 776 ==
LOC: M ED 11:50 → M ED INP 16:12 → M PED 17:50
PROVIDERS: ADMIT Internal Medicine; ATTEND Internal Medicine
DX: O86.20 Urinary tract infection following delivery, unspecified (principal); E87.5 Hyperkalemia; O99.285 Endocrine, nutritional and metabolic diseases complicating the puerperium; E83.42 Hypomagnesemia; D50.9 Iron deficiency anemia, unspecified; O99.03 Anemia complicating the puerperium

== ENCOUNTER 2022-01-21 13:11 | Emergency (ER) | payer OTHER ==
[~2022-01-21] VITALS: Ht 162.6 cm; Wt 66.5 kg
[~2022-01-21 13:11] MED LIST changes: +CEFD300C41 PO
[2022-01-21] MEDS ORDERED: ACETAMINOPHEN 325 MG TAB PO ONE (16:20)
[2022-01-21 16:26] VITALS: O2SAT 97
[2022-01-21 16:57] LABS: BASO # 0.1 10^3/uL (0.0-0.2); BASO % 0.6 % (0.0-1.0); EOS # 0.2 10^3/uL (0.0-0.5); HEMATOCRIT 41.1 % (36.0-47.0); HEMOGLOBIN 13.6 g/dl (12.0-15.5); LYMPH # 2.1 10^3/uL (1.5-5.0); LYMPH % 24.7 % (24.0-44.0); MEAN CORPUSCULAR HEMOGLOBIN 29.5 pg (27.0-33.0); MEAN CORPUSCULAR HGB CONC 33.1 g/dl (32.0-36.5); MEAN CORPUSCULAR VOLUME 89.2 fl (80.0-96.0); MONO # 0.4 10^3/uL (0.0-0.8); MONO % 4.8 % (2.0-8.0); NEUTROPHILS # 5.7 10^3/uL (1.5-8.5); NEUTROPHILS % 67.5 % (36.0-66.0); PLATELET COUNT, AUTOMATED 341 10^3/uL (150-450); RED BLOOD COUNT 4.61 10^6/uL (4.00-5.40); WHITE BLOOD COUNT 8.4 10^3/uL (4.0-10.0)
[2022-01-21 18:18] VITALS: BP 133/71
== END 2022-01-21 18:28 | disposition home or self-care (01) ==
LOC: M ED 13:11
DX: U07.1 COVID-19 (principal); R06.02 Shortness of breath; I10 Essential (primary) hypertension